=== PATIENT | female | born 1960 | race Caucasian/White ===

== ENCOUNTER 2022-05-24 13:38 | Emergency (ER) | payer BC ==
[~2022-05-24] VITALS: Ht 182.9 cm; Wt 76.0 kg
[2022-05-24 13:50] VITALS: BP 153/103
== END 2022-05-24 18:25 | disposition left against medical advice (07) ==
LOC: ER 13:56
DX: Z53.21 Procedure and treatment not carried out due to patient leaving prior to being seen by health care provider (principal)